=== PATIENT | male | born 1980 | race Caucasian/White ===

== ENCOUNTER 2017-08-23 16:58 | Emergency (ER) | payer OTHER ==
[~2017-08-23] VITALS: Ht 175.3 cm; Wt 102.5 kg
[2017-08-23 17:42] LABS: HEMATOCRIT 45.5 % (38.0-50.0); HEMOGLOBIN 15.8 G/DL (12.5-16.6); MCH 30.5 PG (29.0-34.0); MCHC 34.7 G/DL (30.0-36.0); MCV 87.8 FL (86-99); PLATELET COUNT 194 K/uL (156-360); RBC DIS.WIDTH-CV 12.3 % (11.8-14.6); RED BLOOD COUNT 5.18 M/uL (4.00-5.50); WHITE BLOOD COUNT 8.1 K/uL (4.1-10.2)
[2017-08-23 17:54] LABS: ALBUMIN 3.8 g/dL (3.2-4.8)
[2017-08-23 17:55] LABS: CHLORIDE 106 mEq/L (99-109); POTASSIUM 3.8 mEq/L (3.7-5.4); SODIUM 139 mEq/L (136-147)
[2017-08-23 17:57] LABS: GLUCOSE 106 mg/dL (70-99); TOTAL PROTEIN 6.8 g/dL (6.4-8.3)
[2017-08-23 17:59] LABS: TOTAL BILIRUBIN 0.6 mg/dL (0.0-1.0)
[2017-08-23 18:00] LABS: ALKALINE PHOSPHATASE 78 IU/L (3-129)
[2017-08-23 18:01] LABS: CREATININE 1.1 mg/dL (0.6-1.3); GFR ESTIMATE (CALCULATED) > 59 mL/min/ (58.99-99999)
[2017-08-23 18:02] LABS: AST (GOT) 22 IU/L (2-34); UREA NITROGEN (BUN) 13 mg/dL (9-23)
[2017-08-23 18:04] LABS: ALT (GPT) 26 IU/L (3-49)
[2017-08-23 19:09] LABS: APPEARANCE CLEAR ((CLEAR)); BILIRUBIN NEGATIVE; BLOOD MODERATE; COLOR YELLOW ((YELLOW)); GLUCOSE (STRIP) NEGATIVE; KETONES NEGATIVE; LEUKOCYTES NEGATIVE; NITRITE NEGATIVE; PROTEIN (STRIP) 30; SPECIFIC GRAVITY 1.029 (1.000-1.030); UROBILINOGEN 0.2 MG/DL (0.2-1.0)
[2017-08-23 19:15] LABS: BACTERIA NONE SEEN /HPF; EPITHELIAL CELLS RARE /HPF; MUCUS 2+ /LPF; RED BLOOD CELLS 0-5 /HPF (0-5); UCUL ADDED? NO; WHITE BLOOD CELLS 0-5 /HPF (0-5)
[2017-08-23 20:34] LABS: C DIFF TOXIN NEGATIVE (NEGATIVE)
[2017-08-23] MEDS ORDERED: ZOFRAN ODT4 MG PO (20:50)
[2017-08-23 20:57] VITALS: BP 147/98
== END 2017-08-23 20:58 | disposition home or self-care (01) ==
LOC: EME 16:58
PROVIDERS: Physician Assistant Medical
DX: R19.7 Diarrhea, unspecified (principal); Z87.891 Personal history of nicotine dependence
CPT/HCPCS: 74177; 80053; 81003; 85027; 87493; 87506; 99281; 99284; J7030

== ENCOUNTER 2017-09-17 07:41 | Emergency (ER) | payer OTHER ==
[~2017-09-17] VITALS: Ht 177.8 cm; Wt 103.1 kg
[~2017-09-17 07:41] MED LIST: ZOFRAN ODT4 MG PO
[2017-09-17] MEDS ORDERED: VISINE A.C300 DROP/1 BOTH EYES (08:39)
[2017-09-17 08:51] VITALS: BP 140/89
== END 2017-09-17 08:53 | disposition home or self-care (01) ==
LOC: EME 07:41
DX: H11.432 Conjunctival hyperemia, left eye (principal); Z87.891 Personal history of nicotine dependence
CPT/HCPCS: 99281; 99283